=== PATIENT | female | born 1995 | race Caucasian/White ===

== ENCOUNTER 2017-01-04 04:49 | Emergency (ER) | payer OTHER, MEDICAID ==
[~2017-01-04] VITALS: Ht 162.6 cm; Wt 100.3 kg
[2017-01-04 04:51] VITALS: Ht 162.6 cm; Wt 100.3 kg
--- NOTE | 2017-01-04 06:04 | ERD ---
ER Documentation Chief Complaint Date/Time DATE: 01/04/17 TIME: 06:01 Chief Complaint back pain 1 hour ago HPI 21-year-old female with no significant past medical history presents the ED complaining of upper back pain and abdominal pain that started about 1 hour ago. States that it woke her up from her sleep. Reports that she is about 24 weeks . States that it feels like a punching sensation. States that she is unsure when her last menses was but states that it was sometime in August. Denies any vaginal bleeding, vaginal discharge, abdominal trauma, nausea, vomiting, diarrhea, constipation, chest pain, shortness of breath. Denies any dysuria, urgency, frequency. ROS All systems reviewed and are negative except as per history of present illness. Allergies Allergies: Uncoded Allergies: STEROIDS (Allergy, Unknown, 01/04/17) PMhx/Soc Medical and Surgical Hx: pt denies Medical Hx, pt denies Surgical Hx History of Surgery: No Anesthesia Reaction: No Hx Neurological Disorder: No Hx Respiratory Disorders: No Hx Cardiac Disorders: No Hx Psychiatric Problems: No Hx Miscellaneous Medical Probl: No Hx Alcohol Use: No Hx Substance Use: No Hx Tobacco Use: No Physical Exam Vitals Vital Signs Date Time Temp Pulse Resp B/P Pulse Ox O2 Delivery O2 Flow Rate FiO2 01/04/17 04:51 97.8 79 20 140/74 100 Physical Exam Const: Idy-lpq-ahffycjog, well-nourished. In no acute distress. Head: Atraumatic, normocephalic Eyes: Normal Conjunctiva without injection. No purulent discharge. ENT: Normal external ear, nose. Moist oropharynx without tonsillar exudates. Non -erythematous pharynx. Uvula midline. No drooling. No trismus. Neck: No cervical midline tenderness. Full range of motion. No meningismus. No cervical lymphadenopathy. No JVD. Resp: Clear to auscultation bilaterally. No wheezing, rhonchi, rales, or crackles. No accessory muscle use. No retractions. Cardio: Regular rate and rhythm. No murmurs, rubs or gallops. Abd: Soft, slight upper abdominal tenderness, non distended. Normal bowel sounds. No palpable masses. No rebound tenderness. No guarding. Negative McBurney's point. Negative psoas sign. Negative obturator sign. Skin: No petechiae or rashes Back: No midline tenderness. Tenderness to palpation of bilateral lower back. No CVA tenderness. Ext: No cyanosis, or edema. Neur: Awake and alert. Normal gait. Normal coordination. Psych: Normal Mood and Affect Procedures/MDM This is a 21-year-old female with no significant past medical history is a presents to the ED complaining of upper abdominal and upper back pain that started earlier today 1 hour ago. Reports that she is 24 weeks . I instructed patient that since she is over 20 weeks, she should be cleared by and further evaluated by the OB triage at [facility]. Patient will be discharged here from the ED and will be sent to the OB triage for further evaluation and treatment. Patient agreed and understand the discharge plan. Instructed patient to return to the ED sooner for any worsening symptoms. Patient's questions were answered. Patient understood and agreed with discharge plan. Patient discharged hemodynamically stable. Departure Diagnosis: Primary Impression: Back pain affecting Additional Impression: Abdominal pain affecting Condition: Stable Patient Instructions: Abdominal Pain, Back Pain During Referrals: COMMUNITY CLINICS YOU HAVE RECEIVED A MEDICAL SCREENING EXAM AND THE RESULTS INDICATE THAT YOU DO NOT HAVE A CONDITION THAT REQUIRES URGENT TREATMENT IN THE EMERGENCY DEPARTMENT. FURTHER EVALUATION AND TREATMENT OF YOUR CONDITION CAN WAIT UNTIL YOU ARE SEEN IN YOUR DOCTORS OFFICE WITHIN THE NEXT 1-2 DAYS. IT IS YOUR RESPONSIBILITY TO MAKE AN APPOINTMENT FOR FOLOW-UP CARE. IF YOU HAVE A PRIMARY DOCTOR --you should call your primary doctor and schedule an appointment IF YOU DO NOT HAVE A PRIMARY DOCTOR YOU CAN CALL OUR PHYSICIAN REFERRAL HOTLINE AT IF YOU CAN NOT AFFORD TO SEE A PHYSICIAN YOU CAN CHOSE FROM THE FOLLOWING [facility] [address] [facility] [address] [facility]. [facility] [address] [facility] [address] [facility] [address] [facility] [facility]. [address] [facility] YOU HAVE RECEIVED A MEDICAL SCREENING EXAM AND THE RESULTS INDICATE THAT YOU DO NOT HAVE A CONDITION THAT REQUIRES URGENT TREATMENT IN THE EMERGENCY DEPARTMENT. FURTHER EVALUATION AND TREATMENT OF YOUR CONDITION CAN WAIT UNTIL YOU ARE SEEN IN YOUR DOCTORS OFFICE WITHIN THE NEXT 1-2 DAYS. IT IS YOUR RESPONSIBILITY TO MAKE AN APPOINTMENT FOR FOLOW-UP CARE. IF YOU HAVE A PRIMARY DOCTOR --you should call your primary doctor and schedule and appointment IF YOU DO NOT HAVE A PRIMARY DOCTOR YOU CAN CALL OUR PHYSICIAN REFERRAL HOTLINE AT . IF YOU CAN NOT AFFORD TO SEE A PHYSICIAN YOU CAN CHOSE FROM THE FOLLOWING [facility] INSTITUTIONS: [facility] [address] [place] [address] [facility] [address] [place] [address] [facility] [address] [place] [address] ROOM [place] [address] [facility] [address] [place] [address] OFFICE FAX CARLOS NINONICA [address] [place] [address] [facility] [address] [place] [address] [address]EN TERRA[address] [address] [facility], [address], [facility] [address] [address] [address] [place] [address] [facility] [address] [place] [address] [phone] [facility] [address] - ALKA KERR [address], [place] [address] TEDDY GOMEZO [address] [facility]. [address], [place] [address] [address] [address] [place], [place] [id number] [facility] Hours: 8:00 am - 5:00 pm Additional Instructions: YOU NEED TO GO STRAIGHT TO OB TRIAGE UPSTAIRS HERE AT [facility] AFTER BEING DISCHARGE FOR FURTHER EVALUTION AND TREATMENT. Return to this facility if you are not improving as expected. JUDITH RICHMOND PA-C Jan 04, 2017 06:04
== END 2017-01-04 06:08 | disposition home or self-care (01) ==
LOC: FTE 04:49
DX: O26.892 Other specified pregnancy related conditions, second trimester (principal); M54.9 Dorsalgia, unspecified; R10.10 Upper abdominal pain, unspecified; Z3A.24 24 weeks gestation of pregnancy
CPT/HCPCS: 99282